=== PATIENT | female | born 1980 | race African-American/Black ===

== ENCOUNTER 2020-12-13 10:34 | Emergency (ER) | payer OTHER, SELFPAY ==
[2020-12-13 10:39] VITALS: BP 100/65; PULSE 75; RESP 16; TEMP 36.6; O2SAT 100
--- NOTE | 2020-12-13 10:44 | ED.URI ---
HPI - URI/Sore Throat General Chief Complaint: Upper Respiratory Infection Stated Complaint: SORE THROAT Related Data Home Medications Medication Instructions Recorded Confirmed ascorbic acid (vitamin C) 500 mg mg PO 08/25/19 capsule multivitamin 1 tablet PO DAILY 08/30/20 Allergies Allergy/AdvReac Type Severity Reaction Status Date / Time No Known Drug Allergies Allergy Mild unknown Verified 08/30/20 14:56 PMF Family History Family History Grandparent Breast cancer Mother Diabetes mellitus Social History Social History (Updated 08/30/20 @ 14:58 by Ted Dickson MA) Smoking status: Never smoker Alcohol intake: unknown Substance use: never Discharge Plan Discharge Prescriptions: No Action ascorbic acid (vitamin C) 500 mg capsule PO RF: 0 multivitamin [Daily Multi-Vitamin] Tablet 1 tablet PO DAILY RF: 0
--- NOTE | 2020-12-13 10:59 | ED.URI ---
HPI - URI/Sore Throat General Chief Complaint: Upper Respiratory Infection Stated Complaint: SORE THROAT History of Present Illness HPI Narrative: The vaccinated patient, a non-smoker/nondrinker school employee, presents with sore throat. Patient states she has 1/2-week history since Saturday of sore throat especially on the right. No fever, cough, earache; no loss of taste/smell, CP, wheezing/sneezing, S OB. Symptoms are mild worse eating Related Data Home Medications Medication Instructions Recorded Confirmed ascorbic acid (vitamin C) 500 mg mg PO 08/25/19 capsule multivitamin 1 tablet PO DAILY 08/30/20 Allergies Allergy/AdvReac Type Severity Reaction Status Date / Time No Known Drug Allergies Allergy Mild unknown Verified 08/30/20 14:56 Review of Systems Review of Systems: General/Constitutional: No weight loss,fever Eyes: N0: Redness,discharge Ears/Nose/Throat: No: Epistaxis,ear discharge Respiratory: Denies: Hemoptysis Gastrointestinal: No Vomiting, Bleeding-rectal Skin: No Lumps, eruption Neurologic: No Focal Weakness,Sz Hematologic: Denies: Petechiae/Purpura Psychiatric: No: Suicida ideationl All Other Systems: Reviewed and Negative [facility] Family History Family History Grandparent Breast cancer Mother Diabetes mellitus Social History Social History (Updated 08/30/20 @ 14:58 by Ted Dickson MA) Smoking status: Never smoker Alcohol intake: unknown Substance use: never Comments At time of signature, agree with nursing past medical, surgical, social and family history. There is no relevant family history pertinent to the presenting complaint Exam Narrative: General Appearance: Well appearing, Well nourished EYE: PERRLA, Conjunctiva clear Ears: Auditory canal normal, TM normal Nose: Rhinorrhea, Mucousal erythema Mouth/Throat: MM moist, Uvula midline, Pharyngeal erythema with scant right exudate Neck: Supple, No adenopathy Respiratory: No respiratory distress, airway patent Cardiovascular: RRR, No JVD Musculoskeletal: Non tender, Normal strength Skin: Warm, Dry Neurological: A&O x3, CN II-XII intact Psychiatric: Normal mood, Normal affect Course Vital Signs Vital signs: Vital Signs Temperature 97.9 F 12/13/20 10:39 Pulse Rate 75 12/13/20 10:39 Respiratory Rate 16 12/13/20 10:39 Blood Pressure 100/65 12/13/20 10:39 Pulse Oximetry 100 12/13/20 10:39 Temperature 97.9 F 12/13/20 10:39 Pulse Rate 75 12/13/20 10:39 Respiratory Rate 16 12/13/20 10:39 Blood Pressure 100/65 12/13/20 10:39 Pulse Oximetry 100 12/13/20 10:39 MDM - URI/Sore Throat Lab Data Labs: Lab Results 12/13/20 Range/Units 10:55 POC SARS CoV-2 Ag Negative (Negative) Strep Screen Presumptive Negative *(Reference Range: Negative)* Discharge Plan Discharge Clinical Impression: Tonsillar exudate Patient Disposition: Home, Self-Care Condition: Stable Instructions: Pharyngitis (ED) Prescriptions: New azithromycin 250 mg tablet See Rx Instructions .ROUTE .COMPLEX Qty: 6 RF: 0 lidocaine HCl [Lidocaine Viscous] 2 % solution 5 ml MUCOUS MEM QID PRN (Reason: pain) Qty: 100 RF: 0 No Action ascorbic acid (vitamin C) 500 mg capsule PO RF: 0 multivitamin [Daily Multi-Vitamin] Tablet 1 tablet PO DAILY RF: 0 Follow-up/Referrals: Jordyn,Mónica Gerardo APRN [Primary Care Provider] - Stand Alone Forms: Work/School Release IP
== END 2020-12-13 11:20 | disposition home or self-care (01) ==
PROVIDERS: Emergency Provider Emergency Medicine; PCP Nurse Practitioner Family
DX: J03.90 Acute tonsillitis, unspecified (principal); Z20.822 Contact with and (suspected) exposure to COVID-19
CPT/HCPCS: 87081; 87426; 87880; 99213; C9803; G0463